=== PATIENT | male | born 1980 | race Caucasian/White ===

== ENCOUNTER 2023-06-02 19:15 | Outpatient (CLI) | payer MEDICARE, MEDICAID, SELFPAY ==
[2023-06-02 13:36] LABS: Abs Immature Grans 0.02 10^3/uL (0.0-0.06); Absolute Basophil Count 0.05 10^3/uL (0.0-0.2); Absolute Eosinophil Count 0.01 10^3/uL (0.0-0.7); Absolute Lymphocyte Count 1.65 10^3/uL (1.2-3.4); Absolute Monocyte Count 0.31 10^3/uL (0.1-0.8); Absolute Neutrophil Count 5.51 10^3/uL (1.2-6.7); Basophils % 0.7; Eosinophils % 0.1; HCT 42.2 % (40.0-50.0); HGB 14.7 g/dL (13.5-17.5); Immature Grans % 0.3; Lymphocytes % 21.9; MCH 31.7 pg (27.0-33.0); MCHC 34.8 % (32.0-36.0); MCV 91 fL (80-95); MPV 9.9 fL (8.0-11.0); Monocytes % 4.1; Neutrophils % 72.9; Platelet Count 160 10^3/uL (130-400); RBC 4.64 10^6/uL (4.36-5.78); RDW 12.7 % (11.8-14.1); RDW-SD 42.1 fL; WBC 7.55 10^3/uL (4.4-10.8)
[2023-06-02 13:45] LABS: Hemoglobin A1C 4.5 % (<5.7)
[2023-06-02 13:52] LABS: Lithium 0.6 mmol/l (0.6-1.2); TROPONIN-I 0.5 ug/mL (4.0-12.0)
[2023-06-02 14:05] LABS: ALT 19 U/L (16-63); AST 12 U/L (15-37); Albumin 4.1 g/dL (3.4-5.0); Alkaline Phosphatase 103 U/L (46-116); Anion Gap 12.2 mmol/L (3-11); BUN 15 mg/dL (7-18); Bilirubin, Total 0.4 mg/dL (0.2-1.0); CO2 25.8 mmol/L (21.0-32.0); CREATININE 1.4 mg/dL (0.70-1.30); Calcium 9.2 mg/dL (8.5-10.1); Chloride 107 mmol/L (98-107); Estimated GFR 64.76 (mL/min/1.73m2); Glucose 104 mg/dL (74-106); Potassium 3.7 mmol/L (3.5-5.1); Sodium 145 mmol/L (136-145); TSH (W/Ref FT4) 1.49 uIU/mL (0.36-3.74); Total Protein 7.1 g/dL (6.4-8.2)
[2023-06-02 14:43] LABS: Calculated LDL 82 mg/dL (<100); Cholesterol 165 mg/dL (<200); HDL Cholesterol 50 mg/dL (40-60); Triglyceride 165 mg/dL (<150); Vitamin B12 398 pg/mL (193-986)
[2023-06-03 11:56] LABS: HIV-1/2 Ag & Ab Screen Negative (Negative)
[2023-06-03 12:41] LABS: Hepatitis A Antibody IgM Negative (Negative); Hepatitis B Core Antibody Negative (Negative); Hepatitis B surface Ag Negative (Negative); Hepatitis C Ab w Rflx HCV PCR Negative (Negative)
== END 2023-06-02 19:16 | disposition home or self-care (01) ==
LOC: LBO 19:15
PROVIDERS: PCP Nurse Practitioner Family; Visit Provider Nurse Practitioner Family
DX: E78.5 Hyperlipidemia, unspecified (principal); I10 Essential (primary) hypertension; R73.09 Other abnormal glucose
CPT/HCPCS: 36415; 80053; 80061; 82306; 86704; 86709; 86803; 87340; 87389; 80156; 80178; 82607; 83036; 84443; 85025

== ENCOUNTER 2023-08-08 02:55 | Outpatient (CLI) | payer MEDICARE, MEDICAID, SELFPAY ==
[2023-08-08 13:50] LABS: Lithium 0.7 mmol/l (0.6-1.2)
[2023-08-08 13:56] LABS: ALT 19 U/L (16-63); AST 11 U/L (15-37); Albumin 4.1 g/dL (3.4-5.0); Alkaline Phosphatase 96 U/L (46-116); Anion Gap 10.2 mmol/L (3-11); BUN 11 mg/dL (7-18); Bilirubin, Total 0.3 mg/dL (0.2-1.0); CO2 25.8 mmol/L (21.0-32.0); CREATININE 1.3 mg/dL (0.70-1.30); Calcium 9.2 mg/dL (8.5-10.1); Chloride 107 mmol/L (98-107); Estimated GFR 70.78 (mL/min/1.73m2); Glucose 104 mg/dL (74-106); Potassium 3.6 mmol/L (3.5-5.1); Sodium 143 mmol/L (136-145)
== END 2023-08-08 02:56 | disposition home or self-care (01) ==
LOC: LBO 02:55
PROVIDERS: PCP Nurse Practitioner Family; Visit Provider Nurse Practitioner Family
DX: I10 Essential (primary) hypertension (principal); E78.5 Hyperlipidemia, unspecified; F60.0 Paranoid personality disorder; R73.09 Other abnormal glucose
CPT/HCPCS: 36415; 80053; 80178

== ENCOUNTER → 2024-03-05 13:03 | Outpatient (BNVA) | payer MEDICARE, MEDICAID, SELFPAY | PROVIDERS: PCP Nurse Practitioner Family; Referring Provider Nurse Practitioner Family; Visit Provider Physical Therapy Assistant | DX: M79.5 Residual foreign body in soft tissue (principal) | CPT/HCPCS: 10120; 99203 ==

== ENCOUNTER 2025-03-02 14:55 | Outpatient (CLI) | payer MEDICARE, MEDICAID, SELFPAY ==
[2025-03-02 15:10] LABS: Abs Immature Grans 0.02 10^3/uL (0.0-0.06); HCT 39.0 % (40.0-50.0); HGB 13.4 g/dL (13.5-17.5); Immature Grans % 0.2 %; MCH 30.3 pg (27.0-33.0); MCHC 34.4 % (32.0-36.0); MCV 88 fL (80-95); MPV 9.8 fL (8.0-11.0); Platelet Count 165 10^3/uL (130-400); RBC 4.42 10^6/uL (4.36-5.78); RDW 13.8 % (11.8-14.1); RDW-SD 43.8 fL; WBC 8.61 10^3/uL (4.4-10.8)
[2025-03-02 15:18] LABS: Hemoglobin A1C 4.8 % (<5.7)
[2025-03-02 16:51] LABS: ALT 26 U/L (10-49); AST 24 U/L (<34); Albumin 4.3 g/dL (3.4-5.0); Alkaline Phosphatase 69 U/L (46-116); Anion Gap 7.1 mmol/L (3-11); BUN 16 mg/dL (9-23); Bilirubin, Total 0.50 mg/dL (0.2-1.2); CO2 25.9 mmol/L (20.0-31.0); Calcium 8.6 mg/dL (8.3-10.6); Chloride 110 mmol/L (98-107); Cholesterol 183 mg/dL (<200); Glucose 97 mg/dL (74-106); HDL Cholesterol 40 mg/dL (>40); Potassium 3.3 mmol/L (3.5-5.1); Sodium 143 mmol/L (136-145); Total Protein 6.7 g/dL (5.7-8.2)
== END 2025-03-02 14:56 | disposition home or self-care (01) ==
LOC: LBO 14:58
PROVIDERS: PCP Nurse Practitioner Family; Visit Provider Nurse Practitioner Family
DX: Z13.1 Encounter for screening for diabetes mellitus (principal); A00.0 Cholera due to Vibrio cholerae 01, biovar cholerae
CPT/HCPCS: 36415; 80053; 80061; 83090; 83036; 85025